=== PATIENT | male | born 1995 | race Hispanic/Latino ===

== ENCOUNTER 2017-07-14 00:51 | Emergency (ER) | payer SELFPAY ==
[~2017-07-14] VITALS: Ht 162.6 cm; Wt 87.2 kg
[~2017-07-14 00:51] MED LIST: PROMETHAZINE HC25 M1 PO
[2017-07-14 02:50] VITALS: BP 112/52
== END 2017-07-14 02:51 | disposition home or self-care (01) ==
LOC: EME 00:51
PROC: 0HQGXZZ Repair Left Hand Skin, External Approach (ICD-10-PCS; principal; 2017-07-14)
DX: S61.211A Laceration without foreign body of left index finger without damage to nail, initial encounter (principal); W26.9XXA Contact with unspecified sharp object(s), initial encounter; Y93.G1 Activity, food preparation and clean up
CPT/HCPCS: 99281; 99284; S0020

== ENCOUNTER 2017-07-24 13:43 | Emergency (ER) | payer SELFPAY ==
[~2017-07-24] VITALS: Ht 167.6 cm; Wt 86.7 kg
[2017-07-24 15:29] VITALS: BP 120/86
== END 2017-07-24 15:29 | disposition home or self-care (01) ==
LOC: EME 13:43
DX: S61.211D Laceration without foreign body of left index finger without damage to nail, subsequent encounter (principal); Z48.02 Encounter for removal of sutures
CPT/HCPCS: 99281; 99283